=== PATIENT | male | born 1960 | race Caucasian/White ===

== ENCOUNTER 2016-09-15 21:42 | Emergency (ER) | payer OTHER ==
[~2016-09-15] VITALS: Ht 170.2 cm; Wt 77.1 kg
[2016-09-15 21:56] VITALS: BP 165/100
--- NOTE | 2016-09-15 22:08 | ED UPPER/LOWER EXTREMITY COMPL ---
History of Present Illness General Chief Complaint: Laceration Procedure Stated Complaint: " LAC ON LT RING FINGER" Source: patient Exam Limitations: no limitations Vital Signs & Intake/Output Vital Signs & Intake/Output Vital Signs Date Time Temp Pulse Resp B/P Pulse O2 O2 Flow FiO2 Ox Delivery Rate 09/15 2156 97.6 77 18 165/100 97 Room Air ED Intake and Output 09/16 0000 09/15 1200 Intake Total Output Total Balance Patient 170 lb Weight Allergies Coded Allergies: MDX - Prochlorperazine (From COMPAZINE PO TAB 10 MG) (RASH, ANXIOUS 10/20/11) Triage Note: PT TO TRIAGE WITH C/O LAC TO LEFT 4TH FINGER S/P CUT ON GLASS 30MIN SMOOTH STUCCO RESURFACER, DRESSING IN PLACE, LAST TETANUS VACCINATION 1YEAR AGO. Triage Nurses Notes Reviewed? yes Onset: Just prior to arrival Duration: minute(s): (30) Timing: remote history Severity: moderate Severity Numbers: 6 Pain/Injury Location: Left: 4th finger. Method of Injury: laceration No Modifying Factors: none HPI: Patient is a 56-year-old male presenting to the emergency Department chief complaint of left ring finger laceration after accidentally cutting his finger on a broken piece of ceramic. Tetanus was about one year ago. Pain is achy throbbing in nature. Palpation makes it worse. He noticed a lot of blood after he cut himself so he decided to come in for evaluation. Denies numbness or tingling. No other injuries. Symptoms currently moderate. Denies taking anything prior to arrival to help with pain. (ELIJAH PLASCENCIA) Past History Travel History Traveled to [place] past 21 day No Medical History Any Pertinent Medical History? see below for history Cardiovascular: hypertension Surgical History Surgical History: non-contributory Psychosocial History What is your primary language Greenlandic Tobacco Use: Never used Family History Hx Contributory? No (ELIJAH PLASCENCIA) Review of Systems Review of Systems Constitutional: Reports: no symptoms. Comments Review of systems: See HPI, All other systems negative. Constitutional, no chills fever or weight loss HEENT: No visual changes no sore throat no congestion Cardiovascular: No chest pain Skin, no jaundice Respiratory: No dyspnea cough sputum or hemoptysis GI: No nausea no vomiting : No dysuria No hematuria Muscle skeletal: no back pain, no neck pain, Neurologic: No numbness Psych: No stress anxiety Immunology: No splenectomy or history of AIDS (ELIJAH PLASCENCIA) Physical Exam Physical Exam General Appearance: well developed/nourished, no apparent distress, alert, awake , comfortable Comments: Well-developed well-nourished no apparent distress. HEENT: Atraumatic, extraocular motion intact Neck: Supple, no lymphadenopathy Back: Nontender Respiratory: No respiratory distress Extremities: No edema, no erythema. Full range of motion of all digits without difficulty or pain. Capillary refills intact and upper extremity bilaterally. Skin:There is a subcutaneous off like laceration noted on the lateral aspects of the distal tip of the left fourth digit. Mild active bleeding. No foreign bodies appreciated. Laceration is approximately 2 cm in length, well approximating, clean margins. Neuro: Alert and oriented x3 Psych: Mood affect normal, normal memory normal judgment. (ELIJAH PLASCENCIA) Progress Differential Diagnosis: contusion, dislocation, fracture, sprain, laceration Plan of Care: Current Medications Sig/Alexus Start time Last Medication Dose Stop Time Status Admin Lidocaine 20 ML ONCE ONE 09/15 2244 UNVr (Lidocaine 1%) 09/15 2245 (ELIJAH PLASCENCIA) Comments: Declines pain medication on arrival. Repeat manual pressure was 160/98. Patient versus been checking his blood pressure is due to follow-up with his primary care physician. Denies any headaches or visual changes. (ELIJAH PLASCENCIA) Departure Departure Time of Disposition: 2233 Disposition: HOME OR SELF CARE Condition: Stable Clinical Impression Primary Impression: Laceration Secondary Impressions: Hypertension Qualifiers: Hypertension type: essential hypertension Qualified Code: I10 - Essential (primary) hypertension Referrals: NICOLETTE EMERY MD, I. (PCP/Family) Additional Instructions: Return in 7-10 days for suture removal. Keep clean and dry. Take over-the- counter Motrin or Tylenol for pain. Departure Forms: Customer Survey General Discharge Information (ELIJAH PLASCENCIA) PA/DIRECTOR TREASURER Co-Sign Statement Statement: ED Attending supervision documentation- [] I saw and evaluated the patient. I have also reviewed all the pertinent lab results and diagnostic results. I agree with the findings and the plan of care as documented in the PA's/DIRECTOR TREASURER's documentation. [x] I have reviewed the ED Record and agree with the PA's/DIRECTOR TREASURER's documentation. [] Additions or exceptions (if any) to the PAs/DIRECTOR TREASURER's note and plan are summarized below: [] (XAVIER MARQUES,JANESSA Sheth) Procedures Laceration/Wound Repair Laceration/Wound Repair: Wound Location: upper extremity Wound's Depth, Shape: flap, subcutaneous Wound Length (cm): 2 Wound Explored: clean, no foreign body removed, irrigated extensively Irrigated w/ Saline (ccs): 500 Betadine Prep? Yes Anesthesia: digit block, 1% lidocaine Volume Anesthetic (ccs): 4 Wound Debrided: minimal Wound Repaired With: sutures Suture Size/Type: 6:0, nylon Number of Sutures: 3 Layer Closure? No Tetanus Status: up to date Progress: Patient tolerated procedure well. (ANGELITO RODRIGUEZ,ELIJAH)
== END 2016-09-15 22:43 ==
LOC: ERH 21:42
DX: S61.215A Laceration without foreign body of left ring finger without damage to nail, initial encounter (principal); I10 Essential (primary) hypertension; W45.8XXA Other foreign body or object entering through skin, initial encounter

== ENCOUNTER 2016-09-25 11:21 | Emergency (ER) | payer SELFPAY ==
[~2016-09-25] VITALS: Ht 170.2 cm; Wt 76.7 kg
[2016-09-25 11:24] VITALS: BP 136/83
--- NOTE | 2016-09-25 12:08 | ED GENERAL ADULT ---
History of Present Illness General Chief Complaint: Suture Removal/Wound Recheck Stated Complaint: SUTURE REMOVAL Source: patient Exam Limitations: no limitations Vital Signs & Intake/Output Vital Signs & Intake/Output Vital Signs Date Time Temp Pulse Resp B/P Pulse O2 O2 Flow FiO2 Ox Delivery Rate 09/25 1124 98.3 76 20 136/83 100 Room Air Allergies Coded Allergies: MDX - Prochlorperazine (From COMPAZINE PO TAB 10 MG) (RASH, ANXIOUS 10/20/11) Triage Note: PT TO ED FOR SUTURE REMOVAL TO LEFT HAND RING FINGER. PLACED HERE 10 DAYS AGO. DENIES PAIN, NO S/S OF INFECTION. Triage Nurses Notes Reviewed? yes Onset: Abrupt Duration: day(s): Timing: recent history HPI: 09/25/16 12:17 This 56-year-old man presented to the emergency department for suture removal to the left fourth finger. The sutures were removed by the medical student. 3 sutures sutures removed There were no complications. He was instructed to follow-up as needed He had a single sutured laceration to the distal left fourth finger. Past History Travel History Traveled to [place] past 21 day No Medical History Any Pertinent Medical History? see below for history Cardiovascular: hypertension Surgical History Surgical History: non-contributory Psychosocial History What is your primary language Syrian Tobacco Use: Never used ETOH Use: denies use Illicit Drug Use: denies illicit drug use Family History Hx Contributory? No Review of Systems Review of Systems Constitutional: Reports: no symptoms. EENTM: Reports: no symptoms. Respiratory: Reports: no symptoms. Cardiovascular: Reports: no symptoms. GI: Reports: no symptoms. Genitourinary: Reports: no symptoms. Musculoskeletal: Denies: see HPI. Skin: Reports: no symptoms. Neurological/Psychological: Reports: no symptoms. Hematologic/Endocrine: Reports: no symptoms. Physical Exam Physical Exam General Appearance: no apparent distress Head: atraumatic Eyes: Bilateral: normal appearance. Extremities: SUTUTRED WOUND LEFT 4TH FINGER. Core Measures ACS in differential dx? No CVA/TIA Diagnosis: No Severe Sepsis Present: No Septic Shock Present: No Progress Differential Diagnoses I considered the following diagnoses in my evaluation of the patient: [Wound infection, abscess, retained foreign body, nerve, tendon injury] Plan of Care: FOLLOW UP NEEDED Initial ED EKG: none Departure Departure Disposition: HOME OR SELF CARE Condition: Stable Clinical Impression Primary Impression: Visit for suture removal Referrals: YULY MARQUES,NICOLETTE Corley (PCP/Family) Departure Forms: Customer Survey General Discharge Information Critical Care Note Critical Care Note Critical Care Time: non-applicable
== END 2016-09-25 12:27 ==
LOC: ERH 11:21
DX: S61.215D Laceration without foreign body of left ring finger without damage to nail, subsequent encounter (principal)
CPT/HCPCS: 99281